=== PATIENT | male | born 1975 | race Caucasian/White ===

== ENCOUNTER 2022-05-18 19:19 | Emergency (ER) | payer SELFPAY ==
--- NOTE | ~2022-05-18 | XR_ITS ---
EXAMINATION: XR ANKLE, LEFT CLINICAL INFORMATION: Fall. Pain. COMPARISON: None TECHNIQUE: AP, lateral, and mortise views of the left ankle. FINDINGS: Soft tissue swelling at lateral malleolus. There is a faint osseous density at the tip of the lateral malleolus which could be small avulsion fracture. No fracture donor site is evident. The ankle mortise is congruent. XR/XR ankle LT min 3V IMPRESSION: Soft tissue swelling at lateral malleolus. Small osseous density at the tip of lateral malleolus which could be a small avulsion fracture.
--- NOTE | ~2022-05-18 | XR_ITS ---
EXAMINATION: XR KNEE, RIGHT CLINICAL INFORMATION: Acute right knee pain COMPARISON: None TECHNIQUE: Four views of the right knee. FINDINGS: No acute fracture or dislocation. Small tricompartmental marginal osteophytes. Chondrocalcinosis. No joint effusion. XR/XR knee RT 3V IMPRESSION: * No acute findings. * Small tricompartmental marginal osteophytes and chondrocalcinosis.
[2022-05-18 19:52] VITALS: BP 151/92; PULSE 76; RESP 16; TEMP 36.6; O2SAT 98; BMI 44.4
[2022-05-18] MEDS: Acetaminophen 325 MG TABLET 975 MG PO (20:05)
--- NOTE | 2022-05-18 23:13 | ED_ITS ---
HPI - General Adult General Chief complaint: Extremity Injury, Lower Stated complaint: Left Ankle Pain/ Right Knee Pain Time Seen by Provider: 05/18/22 22:48 Source: patient Mode of arrival: ambulatory Limitations: no limitations History of Present Illness HPI narrative: 46-year-old male presents with lower extremity pain after a fall. Patient's foot landed into a pothole. He then fell. Did not hit his head or lose consciousness. There is no prodrome such process pain lightheadedness, palpitations. Initially patient's upper lateral left ankle pain. Since then he has developed right knee pain. The pain is moderate to severe. The pain does not radiate on either side. Not associated with numbness or tingling. The pain is worse with movement and better with rest. Related Data Allergies Allergy/AdvReac Type Severity Reaction Status Date / Time acetaminophen [From Percocet] Allergy Nausea and Verified 05/18/22 21:17 Vomiting oxycodone [From Percocet] Allergy Nausea and Verified 05/18/22 21:17 Vomiting Review of Systems Review of Systems: CONSTITUTIONAL: Denies weight loss, fever and chills. HEENT: Denies changes in vision and hearing. RESPIRATORY: Denies SOB and cough. CV: Denies palpitations no CP. GI: Denies abdominal pain, nausea, vomiting and diarrhea. : Denies dysuria and urinary frequency. MSK: Positive myalgia and joint pain. SKIN: Denies rash and pruritus. NEUROLOGICAL: Denies headache and syncope. PSYCHIATRIC: Denies recent changes in mood. Denies anxiety and depression. All other ROS are negative unless in HPI [facility] Social History Social History Advance Directives: No Advance Directives Information Provided: No Physical Exam ED Vital Signs: Vital Signs - 24 hr 05/18/22 19:52 Temperature 97.8 F Pulse Rate 76 Respiratory Rate 16 Blood Pressure 151/92 H Pulse Oximetry 98 Oxygen Delivery Method Room Air BMI result Body Mass Index 44.4 GEN: Well developed, no acute distress, alert, oriented HEENT: Normocephalic, atraumatic, normal external ears, nose appears normal Eyes: Normal to appearance Neck: Supple, no lymphadenopathy Respiratory: Talks in complete sentences, no respiratory distress Extremities: No clubbing cyanosis or edema, patient does have swelling over the left lateral malleolus with anterior tendon, no ecchymoses. Right knee has no instability, negative anterior posterior drawer sign, no tenderness no ecchymosis, no joint effusion Neurologic: No focal neurologic deficits, cranial nerves 2-12 intact, gait normal Skin: No rash Course Course Course Narrative: 46-year-old male presents after an accidental mechanical fall suffering left ankle pain and right knee pain. Exam reveals soft tissue swelling but no deformity. Is otherwise neurovascularly intact. Patient had an x-ray of his left ankle which revealed a possible avulsion fracture. Will patient patient an Aircast and provided with crutches. In addition, he has now developed right knee pain. There is no tender location. There is no ecchymosis or effusion. Doubt fracture but will obtain x-ray of the right knee as well. Patient will be given Tylenol and ibuprofen for pain and discomfort. Reevaluation(s) Reevaluation #1: workup his current complete. Imaging studies were negative with the exception of a possible small avulsion fracture of the left ankle. Patient will take Tylenol ibuprofen as needed for pain, ice. Patient will be provided with crutches. He has been referred to Orthopedics. All questions and instructions were discussed and answered respectively. Time: 23:47 Medications Administered Discontinued Medications Generic Name Dose Route Start Last Admin Trade Name Freq PRN Reason Stop Dose Admin Acetaminophen 975 mg 05/18/22 19:55 05/18/22 20:05 Acetaminophen 325 Mg Tablet PO 05/18/22 19:56 975 mg ONCE ONE Administration Ibuprofen 800 mg 05/18/22 23:18 05/18/22 23:33 Ibuprofen 800 Mg Tablet PO 05/18/22 23:19 800 mg ONCE ONE Administration Medical Decision Making Medical Decision Making MDM Narrative: 46-year-old male presents after an accidental mechanical fall suffering left ankle pain and right knee pain. Exam reveals soft tissue swelling but no deformity. Is otherwise neurovascularly intact. Patient had an x-ray of his left ankle which revealed a possible avulsion fracture. Will patient patient an Aircast and provided with crutches. In addition, he has now developed right knee pain. There is no tender location. There is no ecchymosis or effusion. Doubt fracture but will obtain x-ray of the right knee as well. Patient will be given Tylenol and ibuprofen for pain and discomfort. Differential Diagnosis Differential Diagnoses: The differential diagnosis associated with the presentation includes ( Sprain, strain, fracture, contusion) Admission/Observation Consideration of admission/observation: Escalation of care including admission/observation considered Independent Interpretation I performed an independent interpretation of an: Plain X-Ray ( ankle, no acute fracture, x-ray right knee, no fracture dislocation) Radiology Impression Discussion of test interpretation with radiology: I have reviewed the radiologist's reading. (IMPRESSION: Soft tissue swelling at lateral malleolus. Small osseous density at the tip of lateral malleolus which could be a small avulsion fracture. Dictated By:Jass Miner MDSigned By:<Electronically signed by Jass Miner MD in OV>05/18/222022) External Record Review no records obtainable Tests considered The following testing was considered but not selected: CT scan of the lower extremities Prescription Management I considered prescription management with: Pain Medication Discharge Plan Discharge Clinical Impression: Ankle sprain and strain, Accidental fall, Acute pain of right knee Patient Disposition: Home, Self-Care Instructions: Ankle Sprain (ED), Knee Pain (ED), R.I.C.E. Treatment (ED), Fall Prevention (ED) Referrals: [facility] [Provider Group] - 5 days
[2022-05-18] MEDS: Ibuprofen 800 MG TABLET PO (23:33)
--- NOTE | 2022-05-19 00:06 | PC.NURSE ---
Discharged at this time. Pt povided with air cast and crutches. He did not demonstrate use of crutches because he is unable to stand at this time, but states he has used them in the past and has a good understanding for how to use them properly and safely. I assisted the pt to private vehicle.
== END 2022-05-19 00:07 | disposition home or self-care (01) ==
PROVIDERS: Emergency Provider Emergency Medicine
DX: S93.401A Sprain of unspecified ligament of right ankle, initial encounter (principal); S96.911A Strain of unspecified muscle and tendon at ankle and foot level, right foot, initial encounter; W10.1XXA Fall (on)(from) sidewalk curb, initial encounter; G89.11 Acute pain due to trauma; M25.561 Pain in right knee; Y93.01 Activity, walking, marching and hiking; Y92.480 Sidewalk as the place of occurrence of the external cause; Y99.9 Unspecified external cause status
CPT/HCPCS: 73562; 73610; 99283

== ENCOUNTER 2024-04-20 10:03 | Outpatient (AMB) | payer OTHER, SELFPAY ==
[2024-04-20 10:32] VITALS: BP 112/78; PULSE 90; O2SAT 98; BMI 45.8
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
== END 2024-04-20 11:32 | disposition home or self-care (01) ==
PROVIDERS: PCP Internal Medicine; Visit Provider Internal Medicine
DX: Z00.00 Encounter for general adult medical examination without abnormal findings (principal); R35.0 Frequency of micturition; H53.8 Other visual disturbances; F41.9 Anxiety disorder, unspecified; F32.A Depression, unspecified; E66.01 Morbid (severe) obesity due to excess calories; Z68.42 Body mass index [BMI] 45.0-49.9, adult; Z12.11 Encounter for screening for malignant neoplasm of colon

== ENCOUNTER 2024-04-20 10:03 | Outpatient (REF) | payer OTHER, SELFPAY ==
[2024-04-20 11:56] LABS: MANUAL DIFF FLAG NO
[2024-04-20 12:05] LABS: Basophils Absolute Auto 0.1 X10*3/uL (0.0-0.2); Basophils Percent Auto 0.9 % (0-2); Eosinophils Absolute Auto 0.1 X10*3/uL (0.0-0.4); Hematocrit 44.6 % (42.0-52.0); Hemoglobin 14.8 g/dl (14.0-18.0); Imm Gran Abs Auto 0.03 X10*3/uL (0.00-0.03); Imm Gran Pct Auto 0.3 % (0.0-0.4); Lymphocytes Absolute Auto 2.2 X10*3/uL (1.2-4.9); Lymphocytes Percent Auto 23.4 % (20-40); Mean Corpuscular HGB Conc 33.2 g/dl (31.0-36.0); Mean Corpuscular Hemoglobin 29.4 pg (27.0-33.0); Mean Corpuscular Volume 88.7 fL (80.0-98.0); Mean Platelet Volume 8.6 fL (9.4-12.4); Monocytes Absolute Auto 0.8 X10*3/uL (0.1-1.2); Monocytes Percent Auto 8.4 % (2-11); Neutrophils Absolute Auto 6.1 x10*3/uL (2.0-8.3); Platelet Count 257 X10*3/uL (160-400); Red Blood Count 5.03 X10*6/uL (4.60-5.80); Red Cell Distribution Width 12.8 % (11.0-16.0); White Blood Count 9.2 X10*3/uL (4.8-10.8)
[2024-04-20 12:41] LABS: Alanine Aminotransferase 23 U/L (0-40); Albumin Level 4.1 g/dL (3.5-5.0); Alkaline Phosphatase 68 U/L (39-117); Anion Gap 8 (12-20); Aspartate Amino Transferase 24 U/L (5-37); Bilirubin Total 0.9 mg/dL (0.0-1.0); Blood Urea Nitrogen 18 mg/dL (9-16); Calcium 9.3 mg/dL (8.4-10.2); Carbon Dioxide 29 mmol/L (22-29); Chloride 108 mmol/L (96-108); Cholesterol 195 mg/dL (<200); Estimated Glomerular Filt Rate > 60; Glucose Fasting 102 mg/dL (60-99); HDL Cholesterol 47 mg/dL (>40); LDL Cholesterol Calculated 127 mg/dL (<100); Potassium 4.3 mmol/L (3.3-5.1); Sodium 141 mmol/L (135-145); Triglycerides 107 mg/dL (<150)
[2024-04-20 12:54] LABS: Prostate Specific Antigen 0.41 ng/mL (<0.05-4.0)
[2024-04-20 12:58] LABS: TSH reflex Free T4 2.59 uIU/mL (0.32-4.0); Vitamin D 25-OH Total 12.3 ng/mL (>30)
[2024-04-20 13:55] LABS: Appearance Urine Clear; Color Urine Yellow; Glucose Urine UA Negative (Negative); Leukocyte Esterase Urine Trace (Negative); Nitrite Urine Negative (Negative); PH 5.5 (5.0-9.0); Specific Gravity - Urine 1.015 (1.005-1.025); UMIC TRIGGER UACC YES; Urine Blood Small (1+) (Negative); Urine Ketones Negative (Negative); Urine Protein Negative (Neg-Trace)
[2024-04-20 14:10] LABS: Bacteria Urine None Seen (None Seen); Hyaline Casts Urine 0-2 /LPF (0-2); RBC Urine 0-2 /HPF (0-2); Squamous Epithelial Cell Urine 0-2 /HPF (0-2); WBC Urine 0-5 /HPF (0-5)
== END 2024-04-20 10:04 | disposition home or self-care (01) ==
LOC: HO.LAB 10:03
PROVIDERS: PCP Internal Medicine; Visit Provider Internal Medicine
DX: Z00.00 Encounter for general adult medical examination without abnormal findings (principal); Z12.5 Encounter for screening for malignant neoplasm of prostate; R35.0 Frequency of micturition; H53.8 Other visual disturbances; F41.9 Anxiety disorder, unspecified; F32.A Depression, unspecified; E66.01 Morbid (severe) obesity due to excess calories; Z68.42 Body mass index [BMI] 45.0-49.9, adult; D64.9 Anemia, unspecified; E78.00 Pure hypercholesterolemia, unspecified; R30.0 Dysuria; N40.0 Benign prostatic hyperplasia without lower urinary tract symptoms; E55.9 Vitamin D deficiency, unspecified
CPT/HCPCS: 36415; 80053; 80061; 81001; 82306; 84153; 84443; 85025; 96127

== ENCOUNTER 2024-07-19 14:37 | Outpatient (AMB) | payer OTHER, SELFPAY ==
--- NOTE | 2024-07-19 14:40 | MHC.PC.OV ---
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 Accompanied by: Self / Same As Patient Allergies acetaminophen [From Percocet] Allergy (Verified 07/19/24 15:21) Nausea and Vomiting oxycodone [From Percocet] Allergy (Verified 07/19/24 15:21) Nausea and Vomiting Medication List - Last Reconciled 07/19/24 by Jeyson Noriega MD No Known Home Meds Tobacco use date assessed: 07/19/24 Dental Screening Dental Screen Date: 07/19/24 Did you have a dental visit in the last 12 months?: No Did you have a dental problem in the last 6 months where you did not have access to dental care?: No Was dental information given to patient?: No HPI 3mth f/u HPI Details Patient comes in today for his follow up visit States that he feels okay He denies any headaches or dizziness Denies any chest pains, no shortness of breath No nausea/vomiting, no abdominal pain No change in bowel habits noted He would like to go over the results of his labs done a few months ago in April 2024 [facility] Medical History (Updated 07/19/24 @ 15:34 by Jeyson Nroiega MD) Vitamin D deficiency Impaired fasting glucose Morbid obesity with BMI of 45.0-49.9, adult Surgical History History of carpal tunnel surgery of right wrist Family History Sister Diabetes mellitus Myocardial infarction Mother Myocardial infarction Social History Housing: Apartment Patient Tobacco Use Status: Former Tobacco user e-Cigarette/Vaping Use: Never Used Second Hand Smoke Exposure: No service: No Current occupational status: employed Current occupational exposures/hazards: No Cognitive needs: No Hearing needs: No Vision needs: No Questionnaire PHQ-9 Over the last 2 weeks, how often have you been bothered by any of the following problems? 1. Little interest or pleasure in doing things: several days 2. Feeling down, depressed, or hopeless: nearly every day 3. Trouble falling or staying asleep, or sleeping too much: not at all 4. Feeling tired or having little energy: more than half the days 5. Poor appetite or overeating: not at all 7. Trouble concentrating on things, such as reading the newspaper or watching television: several days 8. Moving or speaking so slowly that other people could have noticed. Or the opposite - being so fidgety or restless that you have been moving around a lot more than usual: several days 9. Thoughts that you would be better off or of hurting yourself in some way: not at all Depression Screening Interpretation: Positive Depression Screening Follow-up: Existing condition and Community Mental Health Worker F/U Depression Screening Done: Yes 91163 - PHQ-9 Billing: Yes Source: Developed by Drs. Nakul Rodriguez, Misti Pro, West Stubbs and colleagues, with an educational ramona from [employer]. Thrive Questionnaire Date Thrive assessed: 07/19/24 I am a: Patient What is your living situation today?: I have a steady place to live Within the past 12 months, did the food you bought not last and you didn't have the money to get more?: Never true Within the past 12 months, did you worry whether your food would run out before you got money to buy more?: Sometimes True Do you have trouble paying for medicines?: Yes Do you have trouble getting transportation to medical appointments?: No Do you have trouble paying your heating and electricity bill?: Yes Do you have trouble taking care of your child, family member or friend?: Yes Do you have trouble with day-to-day activities such as bathing, preparing meals, shopping, managing finances, etc.?: Yes Are you currently unemployed and looking for a job?: No Are you interested in more education?: Yes Please select the resources that you would like help with: None Currently or been in a relationship where the following occur: No concerns reported THRIVE Score: 2 AUDIT C Alcohol Use Questionnaire (AUDIT-C) 1. How often do you have a drink containing alcohol?: 2-4 times a month 2. How many drinks containing alcohol do you have on a typical day when you are drinking?: 3 or 4 3. How often do you have six or more drinks on one occasion?: Never Total Score: 3 Score Reviewed/Action Taken: Yes RENNY-7 AMB Questionnaire RENNY-7 Date RENNY - 7 assessed: 07/19/24 Feeling nervous, anxious, or on edge: 3 = Nearly every day Not being able to stop or control worryin = Nearly every day Worrying too much about different things: 3 = Nearly every day Trouble relaxin = Nearly every day Being so restless that it is hard to sit still: 1 = Several days Becoming easily annoyed or irritable: 0 = Not at all Feeling afraid as if something awful might happen: 3 = Nearly every day Total RENNY-7 score (0-4 normal; 5-9 mild; 10-14 moderate; 15-21 severe): 16 Source: Developed by Drs. Nakul Rodriguez, Misti Pro, [place] Stubbs and colleagues, with an educational ramona from [employer]. Review of Systems Const Denies chills, Denies difficulty sleeping (sleeps during the day (work night shifts)), Denies fatigue, Denies fever(s) and Denies headache(s) ENT Denies dysphagia, Denies dizziness, Denies otalgia, Denies headache(s), Denies neck pain, Denies odynophagia and Denies sore throat Card Denies chest pain, Denies irregular heart rhythm, Denies palpitations and Denies dyspnea Resp Denies chest congestion, Denies cough and Denies dyspnea GI Denies abdominal pain, Denies constipation, Denies dysphagia, Reports heartburn (occasionally), Denies diarrhea, Denies nausea, Denies odynophagia and Denies vomiting Denies difficulty urinating, Denies dysuria, Reports nocturia and Reports urinary frequency Musc Denies back pain, Denies arthralgias and Denies neck pain Skin/Breast Denies rash Neuro Denies dizziness, Denies headache(s) and Denies paresthesias Psych Reports anxiety and Reports depression Endo Denies fatigue and Denies palpitations Physical exam (Primary Care) Vital Signs: Last Vital Signs Pulse 88 07/19/24 14:41 BP 118/76 07/19/24 14:41 Pulse Ox 95 07/19/24 14:41 Oxygen Delivery Method Room Air 07/19/24 14:41 BMI result Body Mass Index 46.1 Tobacco/Smoking Status: Tobacco use Status Tobacco use date assessed 07/19/24 07/19/24 14:50 Patient Tobacco Use Status Former Tobacco user 07/19/24 14:50 e-Cigarette/Vaping Use Never Used 07/19/24 14:50 Depression Screening Interpretation: Positive Depression Screening Follow-up: Existing condition and Community Mental Health Worker F/U Thrive Assessment: Date of Thrive Assessment Date Thrive assessed 07/19/24 07/19/24 14:50 Currently or been in a relationship where the following occur: No concerns reported Const General: no acute distress and alert HENMT Ears: TM's normal bilaterally and EAC's normal Throat: Yes posterior oropharynx normal and Yes tonsils normal (no TP congestion) Neck Neck: Yes supple and No lymphadenopathy Thyroid: Thyroid normal Resp Auscultation: clear to auscultation bilaterally, no rales and no wheezes Cardio Rate: regular rate Rhythm: regular rhythm Heart sounds: no murmurs GI Palpation (GI): Soft to palpation and nontender Auscultation: normal bowel sounds General: Yes no CVA tenderness Back/Spine/Pelvis Back: no CVA tenderness Thoracic/Lumbar Spine: thoracic and lumbar spine normal to inspection Skin Rashes: no rashes Extrem General: Yes no clubbing, cyanosis or edema Results Reviewed Results Reviewed: Laboratory Tests 04/20/24 04/20/24 11:52 11:55 WBC 9.2 Hgb 14.8 Hct 44.6 Plt Count 257 Sodium 141 Potassium 4.3 Creatinine 0.92 Estimated GFR > 60 Fasting Glucose 102 H Calcium 9.3 AST 24 ALT 23 Triglycerides 107 Cholesterol 195 LDL Cholesterol, Calc 127 H HDL Cholesterol 47 Prostate Specific Ag 0.41 25-OH Vitamin D Total 12.3 L TSH 2.59 Ur Specific Bowen 1.015 Urine Protein Negative Urine Glucose (UA) Negative Urine Blood Small (1+) H Urine Nitrite Negative Ur Leukocyte Esterase Trace H Coding Level of Care Code Est Pt Level 4 (41261) Diagnoses Pure hypercholesterolemia E78.00 Impaired fasting glucose R73.01 Vitamin D deficiency E55.9 Asymptomatic microscopic hematuria R31.21 Morbid obesity with BMI of 45.0-49.9, adult E66.01; Z68.42 Additional Codes PHQ-9 - 90768 - PHQ-9 Billing: Yes ([id number]) Assessment & Plan Assessment & Plan (1) Pure hypercholesterolemia: Code(s): E78.00 - Pure hypercholesterolemia, unspecified Category: Medical Plan: Results of his labs done back in April 2024 reviewed and discussed with patient - he is advised that his cholesterol levels were within normal range but were at the higher end of normal, with his LDL cholesterol at 127 mg/dL Reinforce low-cholesterol diet (2) Impaired fasting glucose: Code(s): R73.01 - Impaired fasting glucose Category: Medical Plan: Patient is advised that his FBS was borderline at 102 mg/dL on his recent labs Reinforce low calorie/low carb diet; exercise as tolerated (3) Vitamin D deficiency: Code(s): E55.9 - Vitamin D deficiency, unspecified Category: Medical Plan: He is advised that his vitamin-D level was very low on his recent labs Will start patient on Vitamin D3 2000 units QD (4) Asymptomatic microscopic hematuria: Code(s): R31.21 - Asymptomatic microscopic hematuria Category: Medical Plan: Will send patient for renal ultrasound and for urine cytology for further evaluation (5) Morbid obesity with BMI of 45.0-49.9, adult: Code(s): E66.01 - Morbid (severe) obesity due to excess calories; Z68.42 - Body mass index [BMI] 45.0-49.9, adult Category: Medical Plan: Reinforced diet/exercise as tolerated/lose weight Per request, we will refer patient to weight management to help him lose weight Plan To return in April 2025 for his next annual physical examination Orders: Orders US renal BI 07/19/24 R31.21 - Asymptomatic microscopic hematuria Complete Blood Count Auto Diff 04/16/25 D64.9 - Anemia, unspecified, Z00.00 - Encounter for general adult medical examination without abnormal findings Comprehensive [place] [facility]. Panel Fast 04/16/25 E78.00 - Pure hypercholesterolemia, unspecified, Z00.00 - Encounter for general adult medical examination without abnormal findings Urine Cytology 07/19/24 R31.1 - Benign essential microscopic hematuria Lipid Panel 04/16/25 E78.00 - Pure hypercholesterolemia, unspecified, Z00.00 - Encounter for general adult medical examination without abnormal findings TSH reflex Free T4 04/16/25 E78.00 - Pure hypercholesterolemia, unspecified, Z00.00 - Encounter for general adult medical examination without abnormal findings UA CC w/rflx Micro + Cult 04/16/25 R30.0 - Dysuria, Z00.00 - Encounter for general adult medical examination without abnormal findings Vitamin D 25-OH Total 04/16/25 E55.9 - Vitamin D deficiency, unspecified, Z00.00 - Encounter for general adult medical examination without abnormal findings Prostate Specific Antigen Scr 04/16/25 Z00.00 - Encounter for general adult medical examination without abnormal findings Hemoglobin A1c 04/16/25 R73.01 - Impaired fasting glucose, Z00.00 - Encounter for general adult medical examination without abnormal findings Referrals Medical Weight Management Referral E66.01 - Morbid (severe) obesity due to excess calories, Z68.42 - Body mass index [BMI] 45.0-49.9, adult Medications: New cholecalciferol (vitamin D3) 50 mcg PO DAILY 90 days 90 caps 3RF E55.9 - Vitamin D deficiency, unspecified
[2024-07-19 14:41] VITALS: BP 118/76; PULSE 88; O2SAT 95; BMI 46.1
== END 2024-07-19 15:33 | disposition home or self-care (01) ==
LOC: HO.HMCH 14:37
PROVIDERS: PCP Internal Medicine; Visit Provider Internal Medicine
DX: E78.00 Pure hypercholesterolemia, unspecified (principal); R73.01 Impaired fasting glucose; E66.01 Morbid (severe) obesity due to excess calories; Z68.42 Body mass index [BMI] 45.0-49.9, adult; E55.9 Vitamin D deficiency, unspecified; R31.21 Asymptomatic microscopic hematuria

== ENCOUNTER → 2024-07-19 14:37 | Outpatient (BNVA) | payer OTHER, SELFPAY | PROVIDERS: PCP Internal Medicine; Visit Provider Internal Medicine | DX: E78.00 Pure hypercholesterolemia, unspecified (principal); R73.01 Impaired fasting glucose; E55.9 Vitamin D deficiency, unspecified; R31.21 Asymptomatic microscopic hematuria; E66.01 Morbid (severe) obesity due to excess calories; Z68.42 Body mass index [BMI] 45.0-49.9, adult | CPT/HCPCS: 96127 ==

== ENCOUNTER 2024-08-31 08:23 | Outpatient (AMB) | payer OTHER, SELFPAY ==
--- NOTE | 2024-08-31 12:49 | MHC.OFFVISWM ---
VS Expanded 08/31/24 12:57 Height 5 ft 8 in Weight 297 lb 8 oz BMI 45.2 Body Fat % 41.4 Body Fat Mass 123.2 Fat Free Mass 174.4 Visceral Fat Rating 26. 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.3: Details: Start time: 12.40pm, End time: 1.25pm ?I spent 40 minutes speaking with the patient on the phone plus an additional 5 minutes reviewing and updating records for a total of 45 minutes HPI Comments Details: Previous weight loss efforts: exercise and calorie counting Wakes up: 2pm, sleeps: 4am or 7.30am Breakfast: skips Lunch: 3.30pm (chicken and salad, sandwich) Dinner: 8-10pm (salad) Snacks: 3am (Nuts) Exercise: none Beverages: Coffee: (occasional iced coffee), hot tea: 1-2 cups/d (cream), soda: none, juice: none, ETOH: 1/wk ([place] 1 glass/wk) [facility] Medical History (Updated 07/19/24 @ 15:34 by Jeyson Noriega MD) Vitamin D deficiency Impaired fasting glucose Morbid obesity with BMI of 45.0-49.9, adult Surgical History History of carpal tunnel surgery of right wrist Family History Sister Diabetes mellitus Myocardial infarction Mother Myocardial infarction Social History (Updated 08/10/24 @ 14:46 by Delaney Bill CMA) Housing: Apartment Alcohol intake: current Alcohol intake frequency: a few times a week Patient Tobacco Use Status: Former Tobacco user e-Cigarette/Vaping Use: Never Used Second Hand Smoke Exposure: No service: No Current occupational status: employed Current occupational exposures/hazards: No Cognitive needs: No Hearing needs: No Vision needs: No Telehealth Telehealth Telehealth Platform: Telephone Location of provider rendering services: practice address Location of patient: address on file Patient Identification confirmed using: Name, : Yes Telehealth method: voice only Patient verbally consented to treatment: Yes Patient verbally consented to billing insurance company: Yes Patient informed of any privacy concerns related to visit: Yes Minutes spent on Phone/Video with Pt.: 45 Assessment & Plan Assessment & Plan (1) Morbid obesity with BMI of 45.0-49.9, adult: Code(s): E66.01 - Morbid (severe) obesity due to excess calories; Z68.42 - Body mass index [BMI] 45.0-49.9, adult Category: Medical Plan: 1. We discussed in detail the available therapeutic options: 1) our lifestyle intervention program that has an average weight loss of 10% in 3 months.? 2) Weight loss medications. We also discussed that you can self pay for the first 3 months and the cost is $399 for the first month and $499 for any other month thereafter. 3) We also discussed about the lap sleeve gastrectomy. I emphasized the importance of close follow-up, adherence to instructions and good communication. The surgery does not replace the need to change your lifestlyle which is the cause of the obesity problem. The surgery provides the motivation to try again to change your lifestyle, it reduces the appetite and make the transition to a better lifestyle easier and doubles the amount of weight you would lose compared to doing the lifestyle change without the surgery. You will need to be on a liquid diet with protein shakes for 2 weeks before surgery to maximize weight loss and boost your nutritional status to recover better from surgery and also for the first two weeks after surgery to let the stomach heal before we introduce other foods. After the first 2 weeks we will introduce protein bars and soft foods like scrambled eggs, cottage cheese and yogurt and after the 6th week will introduce meat, fish and cooked vegetables in small amounts. Over time you should be able to eat everything in small amounts. Side effects like nausea, vomiting, heartburn or abdominal pain are not common in the practice unless you are not following in the practice. This operation requires lifetime commitment to following in our practice and communication with me. You will much less weight and experience side effects if you don?t communicate or not following in the practice. Complications are rare and in our practice is about 1/10 of the national average. The patient prefers to try the lifestyle program. 2.???Nutritional counseling. Start with lunch dinner at 3pm (12 forks of protein and 12 forks of salad/vegetables), one Elevation protein shake (HALF scoop in 8oz low fat unsweetened almond milk each) 5pm-7pm, 3 protein bar (Celebrate or Fit Crunch protein bars) at 8pm-10pm, 11pm-1am and 2am-4am. If working, please do another Elevation protein shake with HALF scoop in 8oz almond milk at 5am-7am. So you do 1-2 protein shakes, 3 protein bars and one meal per day. Meal to include lean meat (beef, fish, pork, turkey, chicken), or swiss yogurt, or egg whites, or beans with a salad with olive oil and fruits (berries, pears, apples, kiwi). Avoid salt, breads, potatoes, rice, pasta, desserts. 3. Each shake would be drunk slowly, like coffee in a period of 2 hours. 4. Cut each bar in 4 pieces and eat each piece in 30min ?to make each bar last 2 hours. 5. I emphasized the importance of measuring accurately the food portion and measure it when serving the food in plate 6. The meal portions include 12 full-size forks of meat and 12 full-size forks of salad. You always eat the meat portion but you can replace up to 6 forks for salad/vegetables with rice, potatoes or pasta, or a fruit ?if you like. The less you do it the better weight loss will be. 7. One full-size fork is what it can be scooped on the fork without falling aside and not what can be bit with the fork. Use regular forks like those you find in a typical restaurant. 8.? Please buy the body composition scale we discussed and send me weight measurements as soon as possible and then once a week. Always include your diet and exercise plan. Alternatively come weekly at the office for weight checks and send me the measurements. 9. Start walking outside daily, tracking calories with a goal of 300 calories per day, daily. Goal is to burn 2000 calories per week on exercise, which means either 300 calories daily, or 400 calories 5 days per week, or 500 calories 4 days per week, or 650 calories 3 days per week. 10. The best choice would be to purchase a stationary bike, elliptical or treadmill at home that can track calories. Let me know if you do so I can give you an exercise plan. 11.?Goal is to lose at least 1.5-2lbs per week 12. Goal to lose at least 10% of your weight, which is about 30lbs. Minimum weight goal: 270lbs 13. Please follow the diet plan exactly without any change. If you don't like something about the plan or you feel hungry you need to communicate with me so I can help you revise the plan. You should not change the plan yourself
[2024-08-31 12:57] VITALS: BMI 45.2
== END 2024-08-31 13:25 | disposition home or self-care (01) ==
LOC: HO.HBS 08:23
PROVIDERS: PCP Internal Medicine; Visit Provider Surgery
DX: E66.01 Morbid (severe) obesity due to excess calories (principal); Z68.42 Body mass index [BMI] 45.0-49.9, adult
CPT/HCPCS: 99204

== ENCOUNTER 2024-11-02 09:48 | Outpatient (AMB) | payer OTHER, SELFPAY ==
--- NOTE | 2024-11-02 09:56 | A.OFFVIS_ITS ---
Vital Signs 11/02/24 10:05 Height 5 ft 8 in Weight 274 lb 11.135 oz BMI 41.8 BP 124/81 Blood Pressure Location Lt brachial Position Sitting Pulse 71 Intake Visit Reasons: Colonoscopy Screening Intake Note: New patient in office today for colonoscopy screening. CC: Patient denies having any GI symptoms today. Guest Services Director Required: No Accompanied by: Self / Same As Patient Allergies oxycodone (From Percocet) Allergy (Verified 11/02/24 10:13) Nausea and Vomiting HPI HPI Colonoscopy Screening: Details: 48-year-old male here for preprocedural meeting to discuss a screening colonoscopy. He is referred by Jeyson Noriega. PMX Morbid obesity High cholesterol Impaired fasting glucose Depression with anxiety * SURGICAL HISTORY Carpal tunnel release-right * ALLERGIES Oxycodone * [employer] LABS: Laboratory Tests 04/20/24 11:55 WBC 9.2 Hgb 14.8 Hct 44.6 Plt Count 257 Estimated GFR > 60 Total Bilirubin 0.9 AST 24 ALT 23 Alkaline Phosphatase 68 TSH 2.59 TODAY'S VISIT This is his first colonoscopy. His bowels are slow and he strains to pass soft stools and no upper GI problems. He denies any cardiac or respiratory problems He is fairly naive to anesthesia and sedation but no problems during CTR. No ID problems. There is no known FHX of crc or polyps. [facility] Medical History Annual physical exam Vitamin D deficiency Impaired fasting glucose Morbid obesity with BMI of 45.0-49.9, adult Surgical History History of carpal tunnel surgery of right wrist Family History Sister Diabetes mellitus Myocardial infarction Mother Myocardial infarction Social History Housing: Apartment Alcohol intake: current Alcohol intake frequency: a few times a week Patient Tobacco Use Status: Former Tobacco user e-Cigarette/Vaping Use: Never Used Second Hand Smoke Exposure: No service: No Current occupational status: employed Current occupational exposures/hazards: No Cognitive needs: No Hearing needs: No Vision needs: No Review of Systems Const Denies fatigue, Denies fever(s), Denies night sweats, Denies poor appetite and Denies weight loss ENT Reports Normal hearing present, Denies dental pain, Denies dysphagia, Denies hearing loss, Denies mouth pain, Denies odynophagia, Denies throat swelling, Denies tongue swelling and Reports other (Dentition adequate) Card Reports no additional complaints Resp Reports no additional complaints GI Details: Denies abdominal pain, Denies melena, Denies bloating, Denies hematochezia, Reports constipation, Denies GI cramping, Denies dysphagia, Denies excessive flatus, Denies early satiety, Denies heartburn, Denies diarrhea, Denies nausea, Denies odynophagia, Denies vomiting and Denies hematemesis Skin/Breast Denies pruritus, Denies lesions, Denies rash and Denies jaundice Neuro Reports Normal hearing present and Denies Abnormal speech present Endo Denies fatigue Aller/Immun Denies throat swelling and Denies tongue swelling Physical Exam Vital Signs: Last Vital Signs Pulse 71 11/02/24 10:05 BP 124/81 11/02/24 10:05 BMI result Body Mass Index 41.8 Const General: cooperative, no acute distress, well developed and well groomed Nutritional Appearance: well nourished and obese Orientation/consciousness: oriented to person, oriented to place and oriented to time Limitations: No language barrier HEENT Head: Yes normocephalic and Yes atraumatic Eyes General: appearance normal, both eyes and all related structures Pupils: Equal, round and reactive pupils present Neck Neck: Yes normal visual inspection and Yes no lymphadenopathy Thyroid: Thyroid normal Resp Effort & Inspection: normal respiratory effort and able to speak in complete sentences Auscultation: clear to auscultation bilaterally Cardio Rate: regular rate Rhythm: regular rhythm Heart sounds: Normal, physiologic split S2 sound present Peripheral pulses: radial pulses present and posterior tibial pulses present GI Inspection: No distended, Yes Abdominal panniculus present and Yes obesity Palpation (GI): Soft to palpation, nontender, no guarding, not rigid and No hepatosplenomegaly present Percussion: Yes normal to percussion Auscultation: normal bowel sounds Rectal Exam - Male: Yes deferred Skin General skin exam: turgor normal, skin not dry, no jaundice, No spider nevi and no striae Rashes: rashes noted (? heal rash under breast area, red but not raised or weeping) Nails: normal Neuro General: oriented to person, oriented to place and oriented to time Cranial nerves: Yes Equal, round and reactive pupils present and Yes Normal hearing present Speech: No Abnormal speech present Extrem General: Yes normal to inspection, No clubbing, No cyanosis and No edema Psych Appearance: grossly normal and well kempt Mental Status: mental status grossly normal Speech and movement: Normal speech and movement present Affect: normal affect Attitude: cooperative Thought process: Normal thought process present and not confabulating Thought content: Normal thought content present Insight: Good insight present (Psych) Judgement: Good judgement present (Psych) Assessment & Plan Assessment & Plan (1) Morbid obesity with BMI of 45.0-49.9, adult: Code(s): E66.01 - Morbid (severe) obesity due to excess calories; Z68.42 - Body mass index [BMI] 45.0-49.9, adult Category: Medical (2) Pre-op examination: Code(s): Z01.818 - Encounter for other preprocedural examination Category: Medical Plan This is his first colonoscopy. His bowels are slow and he strains to pass soft stools and no upper GI problems. He denies any cardiac or respiratory problems He is fairly naive to anesthesia and sedation but no problems during CTR. No ID problems. There is no known FHX of crc or polyps. Orders: Orders Colonoscopy - GI Use Only Today E66.01 - Morbid (severe) obesity due to excess calories, Z01.818 - Encounter for other preprocedural examination, Z68.42 - Body mass index [BMI] 45.0-49.9, adult Medications: New sodium,potassium,mag sulfates 17.5-3.13-1.6 gram (Suprep Bowel Prep Kit) 480 mL orally; FOR COLONOSCOPY PREP 354 mL 0RF Coding Level of Care Code New Pt Level 3 (71638) Diagnoses Morbid obesity with BMI of 45.0-49.9, adult E66.01; Z68.42 Pre-op examination Z01.818
[2024-11-02 10:05] VITALS: BP 124/81; PULSE 71; BMI 41.8
--- OUTSIDE RECORDS SUMMARY | 2024-11-02 10:24 | XMS_ITS | Clinical Summary ---
Author Organization [facility] Address [address] [place] [id number] Phone Care Team Providers Care Cfd Engineer Name Role Phone Ryan Hill MD Primary Care Provider [phone] Allergies No known active allergies Medications No known medications Active Problems No known active problems Social History Tobacco Use Types Packs/Day Years Used Date Smoking Tobacco: Former Smokeless Tobacco: Never Alcohol Use Standard Drinks/Week Comments Yes 0 (1 standard drink = 0.6 oz pur e alcohol) Education Answer Date Recorded Are you interested in more education? Not on edwige e 08/02/2022 Are you concerned about learning? Not on file 08/02/2022 No 08/02/2022 No 08/02/2022 Digital Access Answer Date Recorded No 09/02/2022 No 09/02/2022 No 09/02/2022 Reliable internet access at home? Not on file 09/02/2022 Device with a working camera? Not on file Sex and Gender Information Value Date Recorded Sex Assigned at Male 07/09/2020 2:20 AM EDT Legal Sex Male 9:25 PM EDT Gender Identity Male 07/09/2020 2:20 AM EDT Sexual Orientation Straight 07/09/2020 2 :20 AM EDT Last Filed Vital Signs Vital Sign Reading Time Taken Comments Blood Pressure 106/67 07/09/2020 7:22 AM EDT Pulse 72 07/09/2020 7:22 AM EDT Temperature 37.8 C (100 F) 07/09/2020 2:14 AM EDT Respiratory Rate 20 07/09/2020 7:22 AM EDT Oxygen Saturation 99% 07/09/2020 7:22 AM EDT Inhaled Oxygen Concentration - - Weight 120.2 kg (265 lb) 07/09/2020 2:14 AM EDT Height 172.7 cm (5' 8 ) 07/09/2020 2:14 AM EDT Body Mass Index 40.29 07/09/2020 2:14 AM EDT Plan of Treatment Not on file Medical Devices Not on file Insurance [facility] [address] [place] [address] [facility] [address] [place] [address] [facility] Care Teams Cfd Engineer Relationship Specialty Start Date End Date Ryan Hill MD [address] [place] [address] [address] [place] [phone] [email or web address] PCP - General Family Medicine 07/03/20 Additional Source Comments The information contained in this document represents components of the legal health record. It is not the complete legal health record[facility]
== END 2024-11-02 10:44 | disposition home or self-care (01) ==
LOC: HO.HGI 09:48
PROVIDERS: PCP Internal Medicine; Visit Provider Nurse Practitioner
DX: Z01.818 Encounter for other preprocedural examination (principal); Z12.11 Encounter for screening for malignant neoplasm of colon; E66.01 Morbid (severe) obesity due to excess calories; Z68.41 Body mass index [BMI] 40.0-44.9, adult
CPT/HCPCS: S0285